=== PATIENT | female | born 1970 | race Caucasian/White ===

== ENCOUNTER → 2017-02-09 | Outpatient (REF) | LOC: WSOH 10:49 | DX: Z01.89 Encounter for other specified special examinations (principal) ==

== ENCOUNTER → 2019-09-05 | Outpatient (CLI) | payer BC | LOC: MC.RAD 13:15 | DX: Z12.31 Encounter for screening mammogram for malignant neoplasm of breast (principal) ==

== ENCOUNTER 2023-03-15 09:45 | Day surgery (SDC) | payer OTHER ==
[~2023-03-15] VITALS: Ht 162.6 cm; Wt 53.2 kg
[2023-03-15] MEDS ORDERED: ZYRTEC 10MG10 MG PO (10:04)
[2023-03-15 10:22] VITALS: BP 130/88; PULSE 76; TEMP 97.2
[2023-03-15 11:05] VITALS: BP 112/78; PULSE 81; TEMP 97.1
[2023-03-15 11:20] VITALS: BP 113/81; PULSE 62
[2023-03-15 11:35] VITALS: BP 124/86; PULSE 67
--- NOTE | 2023-03-15 12:30 | NUR ---
1105-PT TO BAY 3 PER CART FROM PROCEDURE ROOM. PT ABLE TO AMBULATE TO CHAIR WITH STAND BY ASSISTANCE. REPORT RECEIVED. VS OBTAINED. CALL LIGHT WITHIN REACH. PT DENIES ANY NEEDS AT THIS TIME. 1115-PT TOLERATING MUFFIN, APPLESAUCE, JUICE, AND WATER. 1140-IV DC'D AT THIS TIME. PT ABLE TO DRESS SELF WITHOUT ASSISTANCE. 1155-DISCHARGE EDUCATION COMPLETED WITH PT. VERBALIZED UNDERSTANDING OF HOME AND FOLLOW UP CARE. ALL QUESTIONS ANSWERED. DISCHARGE PAPERWORK GIVEN TO PT. 1205-DR HANNA IN ROOM DISCUSSING FINDINGS WITH PT. 1230-PT OFF UNIT PER WHEELCHAIR. PT DISCHARGED TO HOME WITH [id number] PER PERSONAL VEHICLE.
== END 2023-03-15 12:30 | disposition home or self-care (01) ==
LOC: SDCO 09:45
DX: Z12.11 Encounter for screening for malignant neoplasm of colon (principal)
CPT/HCPCS: J2704; J7120

== ENCOUNTER → 2023-11-15 | Outpatient (CLI) | payer OTHER ==
[~2023-11-15] MED LIST: ZYRTEC 10MG10 MG PO
== END ==
LOC: MC.RAD 09:13 → COL.RAD 09:15
DX: N64.89 Other specified disorders of breast (principal)